=== PATIENT | female | born 1990 | race Caucasian/White ===

== ENCOUNTER → 2017-06-18 20:15 | Observation (INO) ==
[2017-06-18 15:02] LABS: Bilirubin,Urine Negative (Negative); Blood,Urine Negative (Negative); Clarity,Urine Clear (Clear); Color,Urine Yellow (Yellow); Glucose,Urine (UA) Normal (Normal); Ketones,Urine Negative (Negative); Leukocyte Esterase,Urine Moderate (Negative); Nitrite,Urine Negative (Negative); Protein,Urine Negative (Neg-Trace); Specific Gravity,Urine 1.006 (1.010-1.025); Urobilinogen,Urine Normal (Normal)
[2017-06-18 15:05] LABS: Bacteria,Urine None Seen per hpf (None-Few); Hyaline Casts,Urine None Seen per lpf (None-Few); RBC,Urine 0-3 per hpf (0-3); Squamous Epithelial Cell,Urine Many per lpf (None-Few); WBC,Urine 0-3 per hpf (0-3)
[2017-06-18 15:08] LABS: Amphetamine Screen,Urine Negative ng/mL (Cutoff=1000); Barbiturate Screen,Urine Negative ng/mL (Cutoff=200); Benzodiazepines Screen,Urine Negative ng/mL (Cutoff=200); Cannabinoid Screen,Urine Negative ng/mL (Cutoff = 50); Cocaine Screen,Urine Negative ng/mL (Cutoff= 300); Opiate Screen,Urine Negative ng/mL (Cutoff=300); Phencyclidine Screen,Urine Negative ng/mL (Cutoff=25)
[2017-06-18 16:29] LABS: Basophils % 0.4 %; Eosinophils # 0.1 K/mcL (0.0-0.6); Eosinophils % 1.1 %; Hematocrit 39.3 % (35.3-44.9); Hemoglobin 13.2 g/dL (11.5-15.4); Immature Granulocytes % 0.7 % (0-4); Lymphocytes # 1.7 K/mcL (0.6-4.6); Lymphocytes % 15.8 %; Mean Corpuscular HGB Conc 33.6 g/dL (31.6-35.5); Mean Corpuscular Hemoglobin 29.9 pg (28.0-33.3); Mean Corpuscular Volume 89.1 fL (83.0-100.0); Mean Platelet Volume 11.1 fL (9.4-12.4); Monocytes # 0.7 K/mcL (0.0-1.3); Monocytes % 6.6 %; Neutrophils # 8.2 K/mcL (1.6-8.9); Platelet Count 155 K/mcL (140-400); Red Blood Count 4.41 M/mcL (3.82-4.97); Red Cell Distribution Width 12.4 % (11.5-14.5); Segmented Neutrophils % 75.4 %
--- NOTE | 2017-06-18 17:52 | OB/GYN History & Physical ---
Date of Encounter: 06/18/17 Time of Encounter: 17:28 Assessment and Plan (1) 33 weeks gestation of Current visit: Yes Status: Acute (2) uterine contractions in third trimester, antepartum Current visit: Yes Status: Acute SVE 1/80/0 x2 exams. Contractions every 2-3 minutes but have resolved with fluids and terbutaline. Continue to monitor. Celestone given. Continue to observe this evening. History of Present Illness Chief complaint: contractions HPI: Ms. Rosales is a 27 year old female presenting at 33w4d with c/o contractions since this am. She was seen in the office today and found to be dilated 1cm/80%/0. She was sent to labor and delivery for further evaluation. She reports contractions have gotten closer and stronger throughout the day. She denies LOF or VB. Good FM. No recent intercourse. No urinary complaints. No other complaints. Past Med Surg Social Fam HX - Past Medical History Medical history: asthma Psychiatric history: no psych history - Past Surgical History Surgical History: no surgical history - Social History Smoking Status: Current every day smoker Packs per day: less than 1/2 Smokeless Tobacco Status: No Alcohol use: rarely Drug use: none - Family History Mother Name: August Living Status: Still Living Hx Family Cardiac Disorders: Yes (htn) Hx Family Respiratory Disorders: No Hx Family Cancer: No Hx Family GI Disorders: No Hx Family Genitourinary Disorders: No Hx Family Endocrine Disorder: No Hx Family Musculoskeletal Disorders: No Hx Family Neuromuscular Disorders: No Hx Family Neurologic Disorders: No Hx Family HEENT Disorders: No Hx Family Autoimmune Disorders: No Hx Family Reproductive Disorders: No Hx Family Psychosocial Disorders: Yes (anxiety, bipolar, depression) Hx Family Medical Disorders: No Obstetrical History - Pregnancies : 4 Para: 1 Term: 1 : 0 Ab's: 2 Livin Medications and Allergies Acetaminophen [Tylenol] 500 mg PO Q6HR PRN #20 tablet 11/03/16 [Rx] Ciprofloxacin [Cipro] 500 mg PO BID #20 tablet 11/03/16 [Rx] Phenazopyridine HCl [Pyridium] 200 mg PO TID #6 tab 11/03/16 [Rx] metroNIDAZOLE [Flagyl] 500 mg PO BID #14 tablet 11/19/16 [Rx] 3 Allergy/AdvReac Type Severity Reaction Status Date / Time codeine Allergy Anaphylaxis Verified 08/29/16 10:56 orange Allergy Hives Verified 11/08/16 03:08 Review of System OB All systems PM: reviewed and no additional remarkable complaints except as stated Exam - Constitutional Constitutional: well developed, thin, other (poor dentition) - HEENT HEENT: Mucus Membranes Moist - Lungs Respiratory exam: CTAB - Cardiovascular Cardiovascular exam: RRR - Abdomen Abdomen: Present: gravid, non tender - Extremities Extremities exam: normal inspection - Vulva Vulva: bilateral: normal - Cervix Dilation: 1 Effacement: 80 Station: 0 - Anus/Rectum Anus/Rectum: Present: normal perianal skin Results Result Diagrams: 06/18/17 16:10 Abnormal lab results Ur Specific [place] 1.006 (1.010-1.025) L 06/18/17 14:56 Ur Leukocyte Esterase Moderate (Negative) H 06/18/17 14:56 Ur Squamous Epith Cells Many per lpf (None-Few) H 06/18/17 14:56 All other labs normal. - VTE Reasons for not Prescribing Prophylaxis: Treatment not Indicated - Low risk for VTE
[~2017-06-18 20:15] MED LIST: Betamethasone Acet/SodPhos 6 MG/ML MDV IM SCH; Terbutaline 1 MG/ML VIAL SQ ONE
== END | disposition home or self-care (01) ==
LOC: 1NENULAB
PROVIDERS: ADMIT Registered Nurse; ATTEND Registered Nurse